=== PATIENT | female | born 1990 | race Caucasian/White ===

== ENCOUNTER 2023-08-08 08:50 | Outpatient (CLI) | payer MEDICAID, SELFPAY ==
--- NOTE | 2023-08-08 09:15 | CRLHL7_ITS ---
For Patients: As a result of the Century Cures Act, medical imaging exams and procedure reports are released immediately into your electronic medical record. You may view this report before your referring provider. If you have questions, please contact your health care provider. INDICATION: First trimester dating. TECHNIQUE: Ultrasound OB pelvis transabdominal. Real-time oshea-scale imaging of the pelvis was performed. COMPARISON: None. FINDINGS: Intrauterine gestational sac: Present. Embryo present: Yes. Embryo cardiac activity: 167 BPM. Mccammon rump Length: 3.0 cm. Sonographic gestational age: 9 weeks 6 days. Sonographic estimated due date: March 06, 2024. Yolk sac: Normal. Perigestational hemorrhage: None. Ovaries and adnexae: Unremarkable. No suspicious lesions or fluid collections. IMPRESSION: Single viable intrauterine with an estimated ultrasound age of 9 weeks 6 days. No abnormalities seen. Dictated by Sergio Dominguez MD @ 08/10/2023 7:45:31 AM (Electronically Signed)
== END 2023-08-08 08:51 | disposition home or self-care (01) ==
LOC: US 08:51
PROVIDERS: Visit Provider Registered Nurse
DX: Z34.91 Encounter for supervision of normal pregnancy, unspecified, first trimester (principal); Z3A.09 9 weeks gestation of pregnancy
CPT/HCPCS: 76801

== ENCOUNTER 2023-08-08 09:53 | Outpatient (CLI) | payer MEDICAID, SELFPAY ==
[2023-08-08 17:49] LABS: Chlamydia DNA Amplified* NOT DETECTED (No Detected); GC DNA Amplified* NOT DETECTED (No Detected)
== END 2023-08-08 09:54 | disposition home or self-care (01) ==
PROVIDERS: Visit Provider Registered Nurse
DX: Z34.90 Encounter for supervision of normal pregnancy, unspecified, unspecified trimester (principal)
CPT/HCPCS: 86592; 86703; 86704; 86706; 86762; 86787; 86803; 86850; 86900; 86901; 87086; 87340; 87491; 87591

== ENCOUNTER 2023-10-24 07:06 | Outpatient (CLI) | payer MEDICAID, SELFPAY ==
--- NOTE | 2023-10-24 07:15 | US_ITS ---
INDICATION: ANATOMIC SURVEY COMPARISON: 08/08/2023 TECHNIQUE: ROUTINE ULTRASOUND OF FETUS PERFORMED WITH GRAYSCALE AND COLOR DOPPLER TECHNIQUE. FINDINGS: SINGLE LIVING INTRAUTERINE IS PRESENT WITH A HEART RATE OF 150 BEATS PER MINUTE. NORMAL AMNIOTIC FLUID WITH SINGLE DEEPEST POCKET 3.1 CM. PLACENTA IS POSTERIOR WITH THE EDGE OF THE PLACENTA LOCATED 5.5 CM FROM THE INTERNAL CERVICAL OS. THREE-VESSEL UMBILICAL CORD IS PRESENT WITH NORMAL CENTRAL PLACENTAL INSERTION. POSITION IS BREECH. CERVIX IS CLOSED MEASURING 3.1 CM. ANATOMIC SURVEY IS NORMAL. SONOGRAPHIC GESTATIONAL AGE 21 WEEKS 0 DAYS AND SONOGRAPHIC DUE DATE 03/05/2024. ESTIMATED WEIGHT 419 G WITH ESTIMATED WEIGHT PERCENTAGE AT 86 PERCENTILE. BIOMETRICS ARE WITHIN NORMAL LIMITS. IMPRESSION: NORMAL ANATOMIC SURVEY.
== END 2023-10-24 07:07 | disposition home or self-care (01) ==
LOC: US 07:08
PROVIDERS: Visit Provider Advanced Practice Midwife
DX: Z34.92 Encounter for supervision of normal pregnancy, unspecified, second trimester (principal); Z3A.21 21 weeks gestation of pregnancy
CPT/HCPCS: 76805

== ENCOUNTER 2023-12-19 11:02 | Outpatient (CLI) | payer MEDICAID, SELFPAY | END 2023-12-19 11:03 | disposition home or self-care (01) | LOC: NFLDREF 01-08 11:42 | PROVIDERS: Visit Provider Advanced Practice Midwife | DX: Z34.02 Encounter for supervision of normal first pregnancy, second trimester (principal); Z36.89 Encounter for other specified antenatal screening; Z3A.28 28 weeks gestation of pregnancy | CPT/HCPCS: 86592 ==

== ENCOUNTER 2024-02-12 09:35 | Outpatient (CLI) | payer MEDICAID, SELFPAY | END 2024-02-12 09:36 | disposition home or self-care (01) | LOC: NFLDREF 02-29 19:37 | PROVIDERS: Visit Provider Advanced Practice Midwife | DX: Z36.85 Encounter for antenatal screening for Streptococcus B (principal); Z34.03 Encounter for supervision of normal first pregnancy, third trimester; Z3A.36 36 weeks gestation of pregnancy | CPT/HCPCS: 87081; 87653 ==

== ENCOUNTER 2024-03-11 15:14 | Outpatient (CLI) | payer MEDICAID, SELFPAY ==
[2024-03-11] VITALS (8 sets, daily range): BP systolic 114–128; BP diastolic 67–77; PULSE 68–81; TEMP 36.9
--- NOTE | 2024-03-11 18:02 | PC.OBNST ---
NST Note NST Note Start: 03/11/24 15:19 Freq: ONCE Status: Active Protocol: Document 03/11/24 17:15 FJZ (Rec: 03/11/24 18:02 FJZ [id number]) NST Note 1 Para (# of births) 0 EDC 03/08/24 Gestational Age In Weeks & Days 40 Weeks & 3 Days Patient Presented with Complaint(s) of Other Other Complaints Pt sent from clinic for BP monitoring after having a BP of 144/88. Reactive Yes Appropriate for Gestational Age Yes RN Jessi Eagle RN Date 03/11/24 Reactive Yes Appropriate for Gestational Age Yes RN Dameon Lubin RN Date 03/11/24 OB NST charge Yes Complete NST Note via Write Note Yes The provider's electronic signature indicates the NST is reactive/appropriate for gestational age. *Note to provider: If an addendum is required, open the patient's chart and click on the note under the Nurse/Allied Health tab.
== END 2024-03-11 17:15 | disposition home or self-care (01) ==
LOC: OB OUT 15:16 → OB 15:16
PROVIDERS: Visit Provider Advanced Practice Midwife
DX: O26.893 Other specified pregnancy related conditions, third trimester (principal); R03.0 Elevated blood-pressure reading, without diagnosis of hypertension; Z3A.40 40 weeks gestation of pregnancy
CPT/HCPCS: 59025; G0463

== ENCOUNTER 2024-03-12 15:24 | Inpatient (IN) | payer MEDICAID, SELFPAY ==
[2024-03-12] VITALS (17 sets, daily range): BP systolic 125–164; BP diastolic 64–98; PULSE 76–127; RESP 16; TEMP 36.6–36.8; O2SAT 99; BMI 29.0
[2024-03-12] MEDS: AMPICILLIN 2 GM in 0.9 % SODIUM CHLORIDE Mini-bag 100 ML IVPB (15:51)
[2024-03-12] MEDS: LACTATED RINGERS 1000 ML 1,000 ML 125 ML IV (15:52)
[2024-03-12 16:19] LABS: Basophils Percent Auto 0.2 % (0.0-3.0); Hematocrit 36.6 % (33.0-51.0); Hemoglobin* 11.9 gm/dL (12.0-16.0); Immature Granulocytes Pct Auto 1.4 %; Lymphocytes Percent Auto 8.7 % (20-44); Mean Corpuscular HGB Conc 33 gm/dL (32-36); Mean Corpuscular Hemoglobin 26 pg (26-34); Mean Corpuscular Volume 79 fL (80-100); Monocytes Percent Auto 4.7 % (0.0-11.0); Platelet Count* 174 K/uL (140-440); RDW Coefficient of Variation % 15.7 % (11.5-15.5); Red Blood Count 4.63 m/uL (4.00-5.20); White Blood Count* 14.46 K/uL (4.50-11.00)
--- NOTE | 2024-03-12 16:19 | P.LDBA_ITS ---
Subjective History of Present Illness Narrative: Elsy is a 34 yo at 40 4/7 weeks gestation being admitted to Labor and Delivery for spontaneous onset of labor. She reports her contractions started around 3 am and woke her from her sleep. They intensified throughout the morning but were irreguar. Shortly after lunch time, they started to become more regular. She has been coping well with her partner at home prior to arrival. She denies any leaking of fluid but has had some bloody show. She was evaluated in yesterday in labor and delivery after a clinic visit with elevated BP. Her blood pressure since arrival has been normotensive. She is aware if she has another elevated blood pressure, we would consider drawing labs. At this time she is coping well and is planning a waterbirth. Her full history and physical was dictated by BELIA Andino on 02/20/2024. Please see this for details. Specific Issues/Plans G 1 (has 2 y.o. stepson) Partner: Galo H&P done by BELIA Andino on 02/20/24 1. Migraines with vomiting. Has script for imitrex, reglan and zofran 2. Jehovah Witness. Will not accept blood products! 3. Rubella non-immune. Recommend PP vaccine. 4. GBS positive. Recommend antibiotics in labor, patient agreeable Flu: 08/08/2023 Covid: 08/08/2023 OB - Problem Based A/P Additional Plan (1) Pain during labor: Status: Acute (2) 40 weeks gestation of : Status: Acute (3) Spontaneous onset of labor: Status: Acute (4) Transfusion of blood product declined due to yarsanism reason: Status: Acute Plan ASSESSMENT:? 34 at 40 4/7 weeks gestation? complicated by:? 1. Migraines with vomiting. Has script for imitrex, reglan and zofran 2. Jehovah Witness. Will not accept blood products! 3. Rubella non-immune. Recommend PP vaccine. Labor type: Spontaneous, Early labor? Category 1 FHR pattern.?? Labor complicated by: none? GBS positive? ? PLAN:? 1. Routine intrapartum cares as ordered. Continue with expectant management? 2. Monitoring per policy, intermittent? 3. Planning unmedicated . Desires water . Consent signed. Hep C negative. Candidate for analgesia of choice, if desired.?? 4. Patient encouraged to reposition and ambulate to promote physiologic labor and .? 5. GBS prophylaxis initiated for GBS positive status. Will treat with antibiotics per protocol. 6. Anticipate ? OB Result Labs Blood Type: O (+) positive OB Exam Physical Exam Vital signs: Temp Pulse Resp BP Pulse Ox 98.2 F 82 16 128/80 99 03/12/24 16:04 03/12/24 16:03/12/24 16:04 03/12/24 16:03/12/24 14:32 Narrative: Vitals Reviewed Constitutional:? Alert and oriented x3 HEENT:? Normocephalic, atraumatic Neck:? Supple Lungs:? Clear to auscultation bilaterally Heart:? Regular rate and rhythm, no murmur, rub or gallop Abdomen:? Soft, nontender, and gravid. Vertex by Devin's, confirmed with cervical exam. Extremities:? No edema or erythema Cervix: 5 cm/80%/-1 station/vertex NST: 150 bpm/moderate variability/15x15 accelerations/no decelerations/contractions every 1-4 minutes Detailed Labor and Delivery Exam Patient Gravid: No
[2024-03-12 16:30] LABS: Slide Review Reflex No
[2024-03-12] MEDS: AMPICILLIN 1 GM in 0.9 % SODIUM CHLORIDE Mini-bag 100 ML IVPB (19:26)
[2024-03-12] MEDS: LIDOCAINE 1 % PF 30 ML INJECTION (22:16)
--- NOTE | 2024-03-12 22:37 | W.PM.OBVAGDE ---
OB Procedure Vag Delivery Mother Details Mother Details: Elsy is a 34 year-old, 1, now Para 1, admitted on 03/12/24 at 40.4 weeks gestation. : 1 Para: 1 Weeks Gestation: 40.4 Admission Date: 03/12/24 Additional Details Amniotic Membrane Status: SROM Amniotic Membrane Rupture Date: 03/12/24 Amniotic Membrane Rupture Time: 19:06 Amniotic Membrane Fluid Description: Clear Analgesia/Anesthesia Type: Local Waterbirth: Yes Pitcoin: No Intrapartal Events: None Labor Onset: 12:00 Complete: 19:00 (assumed with pushing) Pushin:00 Heart: heart tones during second stage were reassuring via intermittent monitoring throughout. Delivery Details Delivery Date: 03/12/24 Delivery Time: 21:36 Route of delivery: Gender: Male Viability: Alive; Heart Rate Present Position at Delivery: OA Delivery Details: Patient was admitted for spontaneous onset of labor and progressed normally. She used the shower for labor pain relief before transitioning to the large tub. She was coping well and began pushing spontaneously with urge. SROM noted at 1906 with clear fluid. Patient was assumed complete with pushing at 1900. She pushed well in multiple positions but often only pushed at peak of contractions. She was encouraged and given more guidance to push after 2 hours where she proceeded to move baby well. of a viable male at 2136 in kneeling position in the tub. Vertex delivered OA. No nuchal cord or shoulder. Body delivered easily and without incident. Infant passed between mothers legs and assisted to her arms above the water. She was then assisted to a semi-reclined position. Baby started rooting to breastfeed and latched while mom was sitting in the tub and breastfed well for approximately 10 minutes. Cord was clamped and cut at > 5 minutes. APGARS were 9 at one minute and 9 at five minutes respectively. Mouth was bulb suctioned. Intact placenta with a 3 vessel cord delivered spontaneously at 2203. Fundus firm. Right periurethral and left labial identified and repaired in typical fashion. QBL 300 cc. Mother and baby stable; mother plans to breastfeed. Infant weight 7lb 14oz. GBS was adequately treated. 1 Minute Interval Total Score: 9 5 Minute Interval Total Score: 9 Additional Details Shoulder Dystocia: No Placenta Delivery Time: 22:03 Placental Delivery Description: Spontaneous Delivery repair: Vicryl Procedure Done: Global Blood Loss: 300 Laceration: Labial (with right periurethral) Blood Loss Measurement Type: QBL Bakri Used: No Sponge/Need Count Correct: Yes Cord Vessel Description: 3 Vessels Event Summary Status: Mother and infant were stable after delivery. Elsy had an elevated BP yesterday in clinic and monitoring was reassuring after. She then had a severe range after delivery, however her arm was bent. It was adjusted and immediately rechecked and was then mild range. Will check labs if she continues to have mildly elevated BP's. Disposition: floor
[2024-03-13] VITALS (9 sets, daily range): BP systolic 111–144; BP diastolic 64–88; PULSE 86–125; RESP 12–16; TEMP 36.6–37.3; O2SAT 98
[2024-03-13 00:09] LABS: Alanine Aminotransferase* 17 U/L (4-35); Aspartate Amino Transferase* 30 U/L (12-35); Blood Urea Nitrogen* 10 mg/dL (5-24); Creatinine* 0.5 mg/dL (0.5-1.5); Est. Creatinine Clearance* 157.08; Estimated Glomerular Filt Rate 128 ml/min
[2024-03-13] MEDS: IBUPROFEN 600 MG TABLET PO ×4 (00:50→21:10)
[2024-03-13] MEDS: ACETAMINOPHEN 500 MG TABLET 1000 MG PO ×2 (04:05→10:26)
--- NOTE | 2024-03-13 07:17 | P.OBPN_ITS ---
OB - PN:Subj Subjective Date Seen: 03/13/24 Patient comments OB post-: no complaints and pain well controlled [place] infant status: and doing well [place] feeding status: exclusively Narrative: Elsy is a 34 y.o. who was admitted to L & D for labor.? She had an uncomplicated NVD.? ?? The patient feels well.? The pain is well controlled with current medications.? She has no new complaints.? She is breast feeding and reports things are going well, she would like some help with breatfeeding today.? the patient has done well.? Vitals have been stable.? She has remained afebrile.? Has a good appetite, is tolerating a general diet.? She is voiding without difficulty.? She is passing gas and has not had a bowel movement.? She is ambulating and denies any dizziness.? Has Small amount of rubra lochia.? OB - PN: Obj Exam Physical Exam: Vital signs: Temp Pulse Resp BP Pulse Ox 99.1 F 108 H 12 118/79 99 03/13/24 04:07 03/13/24 04:07 03/13/24 04:07 03/13/24 04:07 03/12/24 14:32 Narrative: GENERAL APPEARANCE:? normal affect, alert, no distress? MOOD:? appropriate? HEENT: normocephalic, neck supple, full ROM? CHEST:? Symmetrical chest wall movement.? Normal respiratory effort.? Clear to auscultation ? HEART:? regular rate and rhythm? ABDOMEN:? soft, non-tender. Uterine fundus is firm, 1 below Umbilicus, Midline and is appropriate for the stage of recovery.? Bowel sounds present.? PERINEUM:? mild edema of the perineum, there is a labial laceration that is healing well.? EXTREMITIES:? normal and no edema? OB - PN: Obj Data Labs Labs: Laboratory Results - last 24 hr 03/12/24 03/12/24 15:35 23:50 WBC 14.46 H RBC 4.63 Hgb 11.9 L Hct 36.6 MCV 79 L MCH 26 MCHC 33 RDW Coeff of Esdras 15.7 H Plt Count 174 Neut % (Auto) 85.0 H Lymph % (Auto) 8.7 L [place] % (Auto) 4.7 Eos % (Auto) 0.0 Baso % (Auto) 0.2 Neut # (Auto) 12.30 H Lymph # (Auto) 1.30 [place] # (Auto) 0.70 Eos # (Auto) 0.00 Baso # (Auto) 0.00 Abs Immat Gran (auto) 0.20 Imm/Tot Granulo (auto) 1.4 BUN 10 Creatinine 0.5 Estimated Creat Clear 157.08 Estimated GFR 128 AST 30 ALT 17 Blood Type O Positive Antibody Screen NEGATIVE OB - PN: A/P Delivery Assessment and Plan (1) 40 weeks gestation of : Status: Acute (2) Transfusion of blood product declined due to adventist reason: Status: Acute (3) care and examination immediately after delivery: Status: Acute (4) Lactating mother: Status: Acute (5) Gestational hypertension: Status: Acute Plan day: 1 Plan: routine care Comments: G 1 P 1 status post uncomplicated NVD??? 1.? Continue route PP cares? 2.? .? May see if desired? 3.? Anticipate discharge home tomorrow? 4. Gestational hypertension, has had mildly elevated BP's > 4 hrs apart. Cur rently stable, monitor per protocol. Normal lab work at this time.
[2024-03-13] MEDS: DOCUSATE SODIUM 100 MG CAPSULE PO (08:01)
[2024-03-13] MEDS: OMEPRAZOLE 20 MG CAPSULE DR PO (08:01)
[2024-03-14] MEDS: IBUPROFEN 600 MG TABLET PO (03:12)
[2024-03-14 03:13] VITALS: BP 128/75; PULSE 108; RESP 12; TEMP 37.1
[2024-03-14] MEDS: OMEPRAZOLE 20 MG CAPSULE DR PO (08:34)
[2024-03-14] MEDS: DOCUSATE SODIUM 100 MG CAPSULE PO (08:34)
[2024-03-14 08:37] VITALS: BP 114/77; PULSE 103; RESP 16; TEMP 36.9; O2SAT 96
[2024-03-14] MEDS: ACETAMINOPHEN 500 MG TABLET 1000 MG PO (08:57)
--- NOTE | 2024-03-14 10:55 | PM.OBDSVD1 ---
DS: Providers Provider Date Seen: 03/14/24 Date of admission: 03/12/24 15:24 Primary care physician: Not a Local Provider Admitting Clinician: Sandra Bliss CNM Attending Physician on discharge: Marvin Emerson CNM Date of Discharge: 03/14/24 DS: Diagnosis Discharge Diagnosis (1) Gestational hypertension: Status: Acute (2) Lactating mother: Status: Acute (3) care and examination immediately after delivery: Status: Acute Exam Narrative: Exam Narrative: VSS, afebrile GENERAL APPEARANCE: ?normal affect, alert, no distress MOOD: ?appropriate HEENT: normocephalic, neck supple, full ROM CHEST: ?Symmetrical chest wall movement. ?Normal respiratory effort. ?Clear to auscultation HEART: ?regular rate and rhythm ABDOMEN: ?soft, non-tender. Uterine fundus is firm, at Umbilicus, Midline and is appropriate for the stage of recovery. ?Bowel sounds present. PERINEUM: ?mild edema of the perineum, there is a labial laceration that is healing well. EXTREMITIES: ?normal and trace edema Const: Vital Signs, click to edit/add: Vital Signs - 24 hr 03/13/24 12:10 03/13/24 15:31 03/13/24 21:01 Temperature 98.1 F 97.9 F 98.1 F Pulse Rate [Blood Pressure Cuff] 86 112 H 86 Respiratory Rate 16 16 16 Blood Pressure [Ri ght Arm] 111/72 119/75 125/78 Pulse Oximetry 98 98 Oxygen Delivery Me thod Room Air Room Air 03/14/24 03:13 03/14/24 08:37 Temperature 98.7 F 98.4 F Pulse Rate [Blood Pressure Cuff] 108 H 103 H Respiratory Rate 12 16 Blood Pressure [Ri ght Arm] 128/75 114/77 Pulse Oximetry 96 Oxygen Delivery Me thod Room Air Documenting provider has reviewed patient's vital signs: yes OB - DS: Summary Hospital Course Hospital Course: Elsy is a 34 y.o. who was admitted to L & D for labor. ?She had an uncomplicated NVD.?The patient feels well. ?The pain is well controlled with current medications. ?She has no new complaints. ?She is breast feeding and reports things are going well.? the patient has done well.? Vitals have been stable since delivery. She did have blood pressures >4 hr apart that were elevated and is diagnosed with gestational hypertension.?Blood pressures since delivery have remained within normal ranges. She has remained afebrile.? Has a good appetite, is tolerating a general diet. ?She is voiding without difficulty.? She is passing gas and has not had a bowel movement.? She is ambulating and denies any dizziness.? Has Small amount of rubra lochia. ?She is considering Nexplanon for prevention. Peripartum Data Infant delivery method: Vaginal Laceration description: Labial complications: none Gender: Male Discharge Plan: Home Status at Discharge Functional status at discharge: independent ambulation Overall status at discharge: patient is progressing back to baseline Time Spent with Patient Time attestation: Total time spent providing and/or coordinating discharge services: Time spent: Less than 30 minutes Discharge Plan Discharge Disposition: Home, Self-Care Date of Admission: 03/12/24 15:24 Attending Provider on Discharge: Marvin Emerson Primary Care Provider: Provider,Not a Local Condition: Stable Anticipated Discharge Date/Time: 03/14/24 12:00 Discharge Medications: New acetaminophen 500 mg Tablet 1,000 mg PO Q6H PRNQty: 0 0RF docusate sodium 100 mg Capsule 100 mg PO DAILY Qty: 90 2RF ibuprofen 600 mg Tablet 600 mg PO Q6H PRNQty: 60 0RF Continued DHA 200 mg capsule 200 mg PO DAILY ferrous sulfate 27 mg iron tablet 27 mg PO QDAY omeprazole 10 mg capsule,delayed release(DR/EC) 10 mg PO ONCE Saccharomyces boulardii [Daily Probiotic (S. boulardii)] 250 mg capsule 250 mg PO BID Discharge Orders: Discharge Order (Routine); Ordered 03/14/24 Ordered By: Marvin Emerson Patient Education: OB Over the Counter Medication Information, OB Vaginal/Breast Feeding Additional Instructions: Discharge instructions were reviewed with the patient including signs and symptoms of infection and home going medications Nothing vaginally for 6 weeks: no tampons or intercourse Off Work or School for 6 weeks [facility] for [facility] BP check?03/17/24. Take BP at home twice a day in morning and evening. Call with BP greater than or equal to 150/100 2-week visit: discuss infant feeding concerns, review control options and screen for anxiety/depression. 6-week visit for an annual exam. consultation services are available to all mothers and babies for the first year after delivery.? To make an appointment, please call [phone]. Activity Level: Activity as Tolerated Discharge Diet: Regular Follow Up Appointments: Provider,Not a Local [Primary Care Provider] - [facility] [Provider Group] Forms: [employer] Info Instructions
[2024-03-14 13:17] LABS: Rapid Plasma Reagin (RPR) Non Reactive (Non Reactive)
== END 2024-03-14 12:00 | disposition home or self-care (01) | DRG 560 ==
LOC: OB OUT 15:25 → OB 15:25
PROVIDERS: Admitting Provider Advanced Practice Midwife; Visit Provider Advanced Practice Midwife
DX: O48.0 Post-term pregnancy (principal); Z37.0 Single live birth; O99.824 Streptococcus B carrier state complicating childbirth; O13.4 Gestational [pregnancy-induced] hypertension without significant proteinuria, complicating childbirth; G43.909 Migraine, unspecified, not intractable, without status migrainosus; Z3A.40 40 weeks gestation of pregnancy
CPT/HCPCS: 36415; 82565; 84450; 84460; 84520; 85025; 86592; 86850; 86900; 86901; A9270; J0290; J2001; J7120

== ENCOUNTER 2024-03-20 13:07 | Outpatient (CLI) | payer MEDICAID, SELFPAY ==
--- NOTE | 2024-03-20 14:51 | P.LACCB_ITS ---
Consult Note - Mom Date of Visit Date of visit: 03/20/24 sql server consultant: Carola Gomez Visit Code: Visit (for low milk supply for mom) Patient's Information Phone number: [phone] : 1 Para: 1 Allergies No Known Drug Allergies Allergy (Verified 03/12/24 14:50) Mother's Medical History: Medical History Health care directive on file ?Z78.9 - Other specified health status (ICD-10) Delivery Information Delivery type: Vaginal Weight: 3.61 kg Discharge Weight: 3.446 kg Baby's Information Medications: none Baby's Age at Visit: 8 days Baby's Provider or Clinic: [facility] Jaundice: No Reason for Consult Reason for Consult: low milk supply, baby at 10.8% weight loss at clinic visit 3 days ago Past Experience Past Experience: No Current Frequency of Day Feedings: every 2-3 hours Frequency of Night Feedings: every 2-3 hours Both Breasts: Yes Suck: strong Latch: cross cradle for right breast, prefers football for left breast. Length of Time: 10 min at most on ea breast Goals: minimum of 6 months, prefers 1 year Pumping Pumping: Yes Quantity Pumped: 1 oz total between both breasts in 20-30 min pumping Supplementing EMB Supplement: Yes (giving all she gets pumping to baby, sometimes he still acts hungry) Formula Supplement: No Baby Elimination Number of Wet Diapers a Day: 6 or more a day Number of BM a Day: 1 this morning, first one since clinic appt 3 days ago Breast/Nipple Condition Breast Information: (+) breast changes during , breasts with normal spacing; mom felt fullness starting on 03/16 but that has stopped and she does not feel full before a feeding at all, not feeling any letdowns. She can express a few drops of milk before feeding, and the milk she has pumped looks like maturing milk, just not large volume. Mom reports feeling good, no signs of illness. Bleeding is light, no clots noticed, has some mild cramping over the last 2 days but nothing concerning and not requiring any pain medication. Engorgement: No Maternal Nipple Condition - Left: Common Nipple Maternal Nipple Condition - Right: Common Nipple Sore Nipples: Yes (slightly, getting better) Interventions for Sore Nipples: Lansinoh (Earth mama nipple cream) Onsite Pre-Feed weight: 3.344 kg Post-Feed weight: 3.37 kg Milk Transferred (mL): 26 (most of this was expressed breastmilk via bottle and syringe at the breast; only about 8 ml from direct breastmilk) Pre-Nursing Left Nipple: Within Normal Limits Pre-Nursing Right Nipple: Within Normal Limits Post-Nursing Left Nipple: Within Normal Limits Post-Nursing Right Nipple: Within Normal Limits Assessments/Interventions Assessments/Interventions: Low milk supply in 8 day mom. Feeding plan developed as follows: Mom to breastfeed baby every 2-3 hours, 5-10 minutes ea breast while baby is actively suckling and swallowing. Jarrell was able to latch to left breast in cross cradle position when EBM was offered via feeding tube/syringe with strong coordinated suck noted. To offer EBM and/or formula at the breast as desired to meet his caloric needs; expect 2-2.5 oz/feeding. Discussed baby's needs are surpassing her milk supply at the moment and he will need supplemental formula for growth. If not supplement at the breast, mom or dad to offer EBM/formula via bottle after to meet his satiation needs. Discussed paced bottle feeding for this. Mom to pump after breastfeedings for 15-20 minutes for stimulation and to increase milk supply without having baby burn more calories than he's getting at the breast. Mom may elect to just pump a few feedings/day and bottle feed to allow time back due to intensity of feeding plan. Discussed supply/demand nature of milk production. Consider galactogogues (More Milk Plus, More Milk Special Blend, GoLacta), etc for milk stimulation. Skin to skin may be helpful to build supply. Follow up 4 days, appointment made for 03/24/24. Time spent on visit with mom, and baby: 70 minutes Meds Home Medications and Allergies Home Medications ?Medication ?Instructions ?Recorded ?Confirmed ?Type docosahexaenoic acid 200 mg 200 mg PO DAILY 08/08/23 03/12/24 History capsule ( DHA) ferrous sulfate 27 mg iron tablet 27 mg PO QDAY 02/12/24 03/12/24 History omeprazole 10 mg capsule,delayed 10 mg PO ONCE 02/12/24 03/12/24 History release Saccharomyces boulardii 250 mg 250 mg PO BID 03/04/24 03/12/24 History capsule (Daily Probiotic (S. boulardii)) Allergies Allergy/AdvReac Type Severity Reaction Status Date / Time No Known Drug Allergies Allergy Verified 03/12/24 14:50
== END 2024-03-20 13:08 | disposition home or self-care (01) ==
LOC: OB LAC 13:12
PROVIDERS: Visit Provider Obstetrics & Gynecology
DX: Z39.1 Encounter for care and examination of lactating mother (principal)
CPT/HCPCS: G0463

== ENCOUNTER 2024-03-24 09:30 | Outpatient (CLI) | payer MEDICAID, SELFPAY ==
--- NOTE | 2024-03-24 11:05 | P.LACF_ITS ---
Follow-Up Note: Mom Date of visit Date of visit: 03/24/24 applications consultant: Carola Gomez Visit Code: Visit (f/u feeding low milk supply for 12 d old infant) Patient's Information Allergies No Known Drug Allergies Allergy (Verified 03/12/24 14:50) Delivery Information Delivery type: Vaginal Weeks Gestation: 40 Weight: 3.61 kg Baby's Information Baby's Age at Visit: 12 d Medications: Current Frequency of Day Feedings: every 2.5-3 hours Frequency of Night Feedings: same Both Breasts: No (often just one side) Suck: strong if latches Latch: inconsistent Length of Time: 5-20 minutes, varies a lot Pumping Pumping: Yes Quantity Pumped: 2 oz/pumping -doubled in last 4 days Supplementing EMB Supplement: Yes Formula Supplement: Yes Baby Elimination Number of Wet Diapers a Day: 6 or more Number of BM a Day: 6 or more Onsite Pre-feed weight: 3.636 kg Assessments/Interventions Assessments/Interventions: Jarrell had eaten 1 hour before appt; attempted a latch but he was not interested in feeding at clinic today. Discussed options with mom and dad re: feeding. Encouraged by mom's pumped volumes doubling in 4 days. Parents plan to continue with current feeding plan of offering breast 2-3 times/day, more if mom feels up to it; pumping with every feeding; offering EBM and then formula if needed to meet Bradley's needs. Mom has a f/u with her business project analyst this week, will mention milk started coming in and then really slowed down; consider checking thyroid levels and evaluate for any additional physical concerns related to slow lactogenesis in mom without other risk factors noted. Parents to call with questions/concerns as needed. Time spent with family: 45 minutes Meds Home Medications and Allergies Home Medications ?Medication ?Instructions ?Recorded ?Confirmed ?Type docosahexaenoic acid 200 mg 200 mg PO DAILY 08/08/23 03/12/24 History capsule ( DHA) ferrous sulfate 27 mg iron tablet 27 mg PO QDAY 02/12/24 03/12/24 History omeprazole 10 mg capsule,delayed 10 mg PO ONCE 02/12/24 03/12/24 History release Saccharomyces boulardii 250 mg 250 mg PO BID 03/04/24 03/12/24 History capsule (Daily Probiotic (S. boulardii)) Allergies Allergy/AdvReac Type Severity Reaction Status Date / Time No Known Drug Allergies Allergy Verified 03/12/24 14:50
== END 2024-03-24 09:31 | disposition home or self-care (01) ==
PROVIDERS: Visit Provider Obstetrics & Gynecology
DX: Z39.1 Encounter for care and examination of lactating mother (principal)
CPT/HCPCS: G0463

== ENCOUNTER 2024-03-27 10:21 | Outpatient (CLI) | payer MEDICAID, SELFPAY | END 2024-03-27 10:22 | disposition home or self-care (01) | LOC: NFLDREF 10:23 | PROVIDERS: Visit Provider Advanced Practice Midwife | DX: Z13.29 Encounter for screening for other suspected endocrine disorder (principal); O13.5 Gestational [pregnancy-induced] hypertension without significant proteinuria, complicating the puerperium; O92.5 Suppressed lactation | CPT/HCPCS: 84443 ==

== ENCOUNTER 2024-12-24 10:54 | Outpatient (CLI) | payer BC, SELFPAY | END 2024-12-24 10:55 | disposition home or self-care (01) | LOC: NFLDREF 10:55 | PROVIDERS: Visit Provider Advanced Practice Midwife | DX: Z13.6 Encounter for screening for cardiovascular disorders (principal) | CPT/HCPCS: 80061 ==

== ENCOUNTER 2025-03-09 09:30 | Outpatient (RCR) | payer BC, SELFPAY ==
--- NOTE | 2025-02-09 15:06 | PT.OPEX ---
PT [place] Outpatient Eval PT [facility] Outpatient Eval Start: 02/09/25 07:40 Freq: Status: Active Protocol: Document 02/09/25 15:04 ZOEY (Rec: 02/09/25 15:06 ZOEY [id number]) E-signed By Jessy London, PT Physical Therapy Outpatient Evaluation Insurance Information Recert Due Date 05/10/25 Insurance Name Medicaid,[employer] Medical Diagnosis Pelvic floor instability, Treating Diagnosis bladder urgency. Referring Sandra Mae Subjective Subjective She is 11 month pp c first son. She does house cleaning . She urinates every 2 hours when awake. She drinks approx 80 oz of water. She also drinks coffee. She feels the urgency worst with undressing to get the toilet. She has had a few dribbles with leaking when trying to get to toilet in time. She has Bowel movements daily to every other day. She has bristol stool scale of 3-4. She does walking and stroller pushing. She wants to heal well prior to getting again. She is still . She denies pelvic pain symptoms. She feels bladder urgency is the biggest issue at this time. Pain Comments ocassional LBP Current Work Status [employer] Occupation cleans houses Precautions Treatment Precautions/ Contraindications Therapy Limitations/ Not Limited Systems Review Objective Other/Pertinent Pelvic Floor Assessment: Objective Bladder hx: bladder urgency, leakage with getting to toilet in bathroom Bowel Hx: uses some laxative and strains on rare occasion to defecate Pelvic hx: denies discomfort / hx: gr 1 tear with tub delivery Breathing: chest/neck breathing Pressure management: fair [place]: 2 finger width separation Posture Assessment: mild PPT in sitting TA strength: Fair LUMBAR ROM Flexion: WNL Extension: WNL Right Sidebend: WNL Left Sidebend: WNL LE MMT Hip flexion: R 5/5 L 5/5 Hip Extension: R 4/5 L 4/5- observed with single leg bridge Hip ER 4-/5 R, 4/5 L HIp IR 4/5 R, 4/5 L Hip abduction: R 4/5 L 4/5 knee extension: R 5/5 L 5/5 Knee Flexion: R 5/5 L 5/5 Assessment Assessment/ Pt is a 34 yr old female 11 month pp with first child. Impression She notes increased bladder urgency with occasional urge incontinence leakage. She demonstrates mild separation with TODD. She has deficits on core strength and recruitment. She demonstrates impaired strength of hips and IR ROM. She would benefit from internal assessment to determine pelvic floor resting tone and coordination. Plan of Care Rehabilitation Good Potential Physical Therapy Pt will report improved voiding interval to 2-3 hours Goals in 12 weeks for improved community navigation. Pt will report 50% reduction in use of pads in 8 weeks to demonstrate improved continence of urinary system. Pt will teach back calming strategies to delay voiding in 4 weeks for improved bladder control and improved void intervals. Pt will be indep c 360 breathing to improve pelvic floor coordination in 4 weeks. Pt will demonstrate indep c pelvic floor lift on exhale to support structurally with exertion in 12 weeks. Pt will demonstrate improved toilet hygiene with postural considerations and no straining to evacuate bowels or bladder to reduce downward forces on pelvic floor in 12 weeks. Coordination/ Referral Source Communication With Treatment Plan/ Biofeedback,Electrical Stimulation,Gait Training,Heat, Direct Interventions Ice/Cold/Vasopneumatic,Manual Therapy,Neuromuscular Re- ed,Orthotics/Braces,Self-Care/Home Management, Therapeutic Activities,Therapeutic Exercises Frequency/Duration weekly x12 weeks Patient Will Be Completion of LTG(s),Skills Plateau,Independent w/HEP, Discharged From Independently Progressing Therapy Evaluation Billing Untimed Code 45 Treatment Minutes Complexity Low Certification Information Initial 02/09/25 Certification Date Ending Certification 05/10/25 Date Provider Signature Yes Required Provider Signature POC & Medical Necessity Shows Agreement With Physician NPI Number Write NPI# Here Physician Comment/ : Change Physician Signature Please Sign/Date Here & Date Requested
== END 2025-07-07 23:59 | disposition home or self-care (01) ==
PROVIDERS: Visit Provider Advanced Practice Midwife
DX: M62.89 Other specified disorders of muscle (principal); R39.15 Urgency of urination; Z51.89 Encounter for other specified aftercare
CPT/HCPCS: 97110; 97140; 97161; 97530